=== PATIENT | male | born 1970 | race Two or more races ===

== ENCOUNTER 2016-08-12 11:59 | Inpatient (IN) | payer BC ==
[~2016-08-12] VITALS: Ht 167.6 cm; Wt 86.6 kg
[2016-08-12 15:09] LABS: microscopic required? YES; urine erythrocyte 1+ (NEGATIVE)
[2016-08-12 15:33] LABS: BASOPHIL % 0.3 % (0-2); PLATELET COUNT 155 x10^3mcL (130-400); RED CELL DISTRIBUTION WIDTH 12.8 % (11.5-14.5)
[2016-08-12 15:46] LABS: CARBON DIOXIDE 29.8 mmol/L (21-32); CHLORIDE SERUM 101 mmol/L (98-107); GFR1 > 60 mL/min; GLUCOSE SERUM 109 mg/dL (74-106); SODIUM SERUM 137 mmol/L (136-145)
[2016-08-12 15:50] LABS: ALBUMIN 3.7 g/dL (3.4-5.0); ALKALINE PHOSPHATASE 69 U/L (46-116); ALT/SGPT 64 U/L (16-63); AST/SGOT 39 U/L (15-37); BILIRUBIN TOTAL 0.6 mg/dL (0.20-1.00); HDL CHOLESTEROL 57 mg/dL (40-60); LIPASE 134 IU/L (73-393); TRIGLYCERIDES 117 mg/dL (<150)
[2016-08-12 15:52] LABS: CHOLESTEROL 250 mg/dL (<200); CHOLESTEROL/HDL RATIO 4.4
[2016-08-12 16:01] LABS: T3 TOTAL 0.83 ng/mL
[2016-08-12 16:07] LABS: FREE THYROXINE INDEX 2.7 ug/dL (1.4-4.5); T4(THYROXINE) 7.3 ug/dL (4.7-13.3)
[2016-08-12 16:49] LABS: FREE T4 1.02 ng/dL (0.76-1.46)
[2016-08-12 17:32] LABS: MAGNESIUM 2.1 mg/dL (1.8-2.4)
[2016-08-12 19:58] VITALS: BP 122/76
[2016-08-12 21:59] VITALS: BP 108/63
[2016-08-13 06:05] VITALS: BP 115/79
[2016-08-13 06:33] LABS: ALKALINE PHOSPHATASE 64 U/L (46-116); ALT/SGPT 54 U/L (16-63); AST/SGOT 31 U/L (15-37); BILIRUBIN TOTAL 0.6 mg/dL (0.20-1.00); CALCIUM 8.6 mg/dL (8.5-10.1); CHLORIDE SERUM 104 mmol/L (98-107); CREATININE SERUM 1.1 mg/dL (0.7-1.3); GFR1 > 60 mL/min; GLUCOSE SERUM 120 mg/dL (74-106); MAGNESIUM 2.2 mg/dL (1.8-2.4); PHOSPHOROUS 4.5 mg/dL (2.5-4.9); POTASSIUM SERUM 4.3 mmol/L (3.5-5.1); SODIUM SERUM 140 mmol/L (136-145); TOTAL PROTEIN, SERUM 6.6 g/dL (6.4-8.2)
[2016-08-13 06:36] LABS: ALBUMIN 3.3 g/dL (3.4-5.0)
[2016-08-13 07:04] LABS: BASOPHIL % 0 % (0-2); PLATELET COUNT 149 x10^3mcL (130-400); RED CELL DISTRIBUTION WIDTH 12.7 % (11.5-14.5)
[2016-08-13 09:39] VITALS: BP 123/76
[2016-08-13 13:21] VITALS: BP 111/78
[2016-08-13 17:34] VITALS: BP 132/79
[2016-08-13 22:01] VITALS: BP 114/68
[2016-08-14 07:06] LABS: CALCIUM 8.2 mg/dL (8.5-10.1); CARBON DIOXIDE 30.2 mmol/L (21-32); CHLORIDE SERUM 106 mmol/L (98-107); CREATININE SERUM 1.1 mg/dL (0.7-1.3); GFR1 > 60 mL/min; GLUCOSE SERUM 94 mg/dL (74-106); POTASSIUM SERUM 3.9 mmol/L (3.5-5.1); SODIUM SERUM 141 mmol/L (136-145)
[2016-08-14 07:11] LABS: PLATELET COUNT 142 x10^3mcL (130-400)
[2016-08-14 07:16] LABS: BASOPHIL % 3.3 % (0-2)
[2016-08-14 09:43] VITALS: BP 135/85
[2016-08-14] MEDS ORDERED: COL100 PO (14:12)
[2016-08-14] MEDS ORDERED: NORCO1 TA2 PO (14:15)
[2016-08-14 14:53] VITALS: BP 135/85
[2016-08-14 14:55] VITALS: BP 118/76
== END 2016-08-14 16:02 | disposition home or self-care (01) | DRG 342 ==
LOC: ED 11:59 → DU 15:46 → MU 08-14 06:06
PROVIDERS: Family Medicine; Specialist; Surgery; ADMIT Family Medicine
PROC: 0DTJ4ZZ Resection of Appendix, Percutaneous Endoscopic Approach (ICD-10-PCS; principal; 2016-08-12 17:00)
DX: K35.80 Unspecified acute appendicitis (principal); E44.1 Mild protein-calorie malnutrition; E78.5 Hyperlipidemia, unspecified; R31.9 Hematuria, unspecified; D73.4 Cyst of spleen; R74.0 Nonspecific elevation of levels of transaminase and lactic acid dehydrogenase [LDH]; Z88.0 Allergy status to penicillin; Z82.49 Family history of ischemic heart disease and other diseases of the circulatory system; Z72.89 Other problems related to lifestyle; Z68.30 Body mass index [BMI] 30.0-30.9, adult
CPT/HCPCS: 83880; 84439; J0330; J1170; J1644; J1885; J2405; J2704; J2710; J3010; J3490; J7030; Q0092

== ENCOUNTER 2017-03-04 07:54 | Emergency (ER) | payer BC ==
[~2017-03-04 07:54] MED LIST: COL100 PO; NORCO1 TA2 PO
[2017-03-04 08:19] VITALS: BP 127/83
== END 2017-03-04 09:18 | disposition home or self-care (01) ==
LOC: ED 07:54
DX: S93.401A Sprain of unspecified ligament of right ankle, initial encounter (principal); X50.1XXA Overexertion from prolonged static or awkward postures, initial encounter; Y93.89 Activity, other specified; Y92.89 Other specified places as the place of occurrence of the external cause; Y99.8 Other external cause status